=== PATIENT | male | born 1960 ===

== ENCOUNTER 2023-11-04 10:34 | Day surgery (SDC) | payer OTHER ==
[~2023-11-04] VITALS: Ht 188 cm; Wt 78.7 kg
== END 2023-11-04 12:07 | disposition home or self-care (01) ==
LOC: ORSCSDS 10:34
PROVIDERS: Internal Medicine Gastroenterology
PROC: 0DBP8ZX Excision of Rectum, Via Natural or Artificial Opening Endoscopic, Diagnostic (ICD-10-PCS; principal; 2023-11-04 11:45)
DX: Z12.11 Encounter for screening for malignant neoplasm of colon (principal); K62.1 Rectal polyp
CPT/HCPCS: 88305; J2704; J7120